=== PATIENT | female | born 1985 | race Caucasian/White ===

== ENCOUNTER 2017-03-07 11:34 | Inpatient (IN) | payer OTHER ==
[2017-03-07] MEDS ORDERED: Glycerin ADULT SUPP PR PRN (12:51)
[2017-03-07] MEDS ORDERED: Witch Hazel PAD* JAR TOPICAL PRN (12:51)
[2017-03-07] MEDS ORDERED: Acetaminophen TAB* 325 MG PO PRN (12:51)
[2017-03-07] MEDS ORDERED: Tetan/Diph/Pertus SYR(Tdap)* 0.5 ML SYR(BOOSTRIX) use SYR IM ONE (12:51)
[2017-03-07] MEDS ORDERED: Dibucaine 1% 28.35 GM TUBE PR PRN (12:51)
[2017-03-07] MEDS: Ibuprofen TAB* 600 MG PO PRN ×2 (14:33→20:44)
[2017-03-07] MEDS: Docusate CAP* 100 MG PO SCH ×2 (14:33→20:44)
[2017-03-07] MEDS ORDERED: Simethicone TAB* 80 MG TAB.CHEW PO SCH (17:30)
[2017-03-07 23:54] VITALS: BP 109/62
[2017-03-08] MEDS: Ibuprofen TAB* 600 MG PO PRN ×2 (05:08→12:13)
[2017-03-08 06:44] LABS: Hematocrit 31 % (35-47); Hemoglobin 10.7 g/dl (12.0-16.0); Mean Corpuscular HGB Conc 34 g/dl (31-36); Mean Corpuscular Hemoglobin 29 pg (27-31); Mean Corpuscular Volume 85 fL (80-97); Mean Platelet Volume 7 um3 (7.4-10.4); Red Blood Count 3.65 10^6/ul (4.0-5.4); Red Cell Distribution Width 13 % (10.5-15); White Blood Count 14.5 10^3/ul (3.5-10.8)
[2017-03-08] MEDS ORDERED: Ferrous Gluconate TAB* 324 MG TAB PO SCH (09:00)
[2017-03-08] MEDS ORDERED: Influenza VAC *QUAD* 2017-18* 0.5 ML SYRINGE IM ONE (09:00)
[2017-03-08] MEDS: Docusate CAP* 100 MG PO SCH (09:36)
== END 2017-03-08 12:58 | disposition home or self-care (01) | DRG 775 ==
LOC: MCHOBOUT 11:34 → MCHOB 11:41
PROVIDERS: ADMIT Midwife; ATTEND Midwife
PROC: 10E0XZZ Delivery of Products of Conception, External Approach (ICD-10-PCS; principal; 2017-03-07)
PROC: 4A1HXCZ Monitoring of Products of Conception, Cardiac Rate, External Approach (ICD-10-PCS; 2017-03-07)
PROC: 0HQ9XZZ Repair Perineum Skin, External Approach (ICD-10-PCS; 2017-03-07)
DX: O70.0 First degree perineal laceration during delivery (principal); Z37.0 Single live birth; Z3A.38 38 weeks gestation of pregnancy
CPT/HCPCS: 36415; 85025; A9270-GY

== ENCOUNTER 2019-03-25 05:40 | Inpatient (IN) | payer OTHER ==
[2019-03-25] MEDS ORDERED: OXYTOCIN* 10 UNITS/ML 1 ML VIAL IM ONE (07:30)
[2019-03-25] MEDS ORDERED: Buffered Lidocaine 1% SYRIN* 1 ML/SYRINGE INTRADERM ONE (07:30)
[2019-03-25] MEDS ORDERED: Dibucaine 1% 28.35 GM TUBE PR PRN (07:30)
[2019-03-25] MEDS ORDERED: Acetaminophen TAB* 325 MG PO PRN (07:30)
[2019-03-25] MEDS ORDERED: Lactated Ringers 1000 ML Bag* 1,000 ML IV ONE (07:30)
[2019-03-25] MEDS ORDERED: Witch Hazel PAD* JAR TOPICAL PRN (07:30)
[2019-03-25] MEDS ORDERED: Glycerin ADULT SUPP PR PRN (07:30)
[2019-03-25] MEDS ORDERED: OXYTOCIN* 10 UNITS/ML 1 ML VIAL ONE (07:38)
[2019-03-25] MEDS ORDERED: Lidocaine 1% INJ* 10 MG/ML 30 ML SDV ONE (07:43)
[2019-03-25] MEDS ORDERED: Lactated Ringers 1000 ML Bag* 1,000 ML IV SCH ×2 (08:00)
--- NOTE | 2019-03-25 08:08 | HP ---
General Information - Reason for Visit Pt arrived on unit in active labor at 9cm dilation - General Information Maternal Age: 33 Grav: 4 Para: 2 SAB: 1 IEA: 0 Estimated Due Date: 04/02/19 Gestational Age in Weeks/Days: 38 6/7 Maternal Blood Type and Rh: O Positive - Results this Serology/RPR Result: Non-Reactive Rubella Result: Immune HBsAg Result: Negative HIV Result: Negative GBS Culture Result: Negative Past Medical History Delivery History: Hx Uncomplicated Vaginal Delivery Pertinent Past Medical History: See Records - cold sores Pertinent Past Surgical History: None Pertinent Family History: Non-Contributory - Antepartal Records Antepartal Records: Reviewed, Complicated by: - marginal previa, resolved Review of Systems Constitutional: Uncomfortable CV Complaint: No Respiratory: Shortness of Breath: No Gastrointestinal: No Nausea/Vomiting, Normal Bowel Movement Genitourinary: Leaking Fluid, No Dysuria, No Bleeding Musculoskeletal: No Epigastric Pain, Contractions Neurological: No Headache, No Visual Changes Movement: Normal Exam Allergies/Adverse Reactions: Allergies No Known Allergies Allergy (Verified 03/25/19 06:05) Vital Signs 03/25/19 07:25 Temperature 98.2 F Pulse Rate 81 Respiratory 20 Rate Blood Pressure 109/78 (mmHg) O2 Sat by Pulse 100 Oximetry - Measurements Height: 5 ft 7 in Weight: 76.657 kg Weight in lbs: 169.218922 Body Mass Index (BMI): 26.4 Pre- Weight: 58.967 kg Weight Gained This : 39 lbs and 0 ozs - Exam Breast: Breast Exam Deferred CVA: No CVA Tenderness Extremities: No Edema Heart: Normal Rhythm/Heart Sounds HEENT: No Significant Findings Lungs: Clear Bilaterally Rectal: Rectal Exam Deferred Reflexes: DTR 2+ Thyroid: No Thyromegaly - Abdominal Exam Abdomen Exam: Non-Tender - Ultrasound/Biophysical Profile Ultrasound Status: Not Done Targeted Exam Findings See L&D Outpatient Visit Provider Note for Findings: N/A Estimated Weight: 7.5# Cervical Exam: 9cm Effacement: 100% Presenting Part: Vertex Membrane Status: SROM Amniotic Fluid Evaluation: Gross Rupture Bleeding/Discharge: Bloody Show EFM Findings - External Monitor Findings Baseline Heart Rate: 135 External Monitor Findings: Accelerations Present, No Pattern of Variable or Late Decelerations, Variability Moderate, Baseline Stable Contractions: Regular, Strong, 45-90 Seconds Contraction Frequency: 2-3 Assessment/Plan - Assessment 33 year old at 39 6/7 weeks gestation in active labor with no evidence of acidemia - Plan Plan: Admit - Anticipate Vaginal Delivery - Date/Time of Admission Date of Admission: 03/25/19 Time of Admission: 06:10
--- NOTE | 2019-03-25 08:16 | PROCNOTE ---
[facility] OB: Delivery Note - Delivery A Date of : 03/25/19 Time of : 06:59 [place] Sex: Male Weight at : 3.68 kg Score 1 Minute: 9 Score 5 Minutes: 9 Gestational Age in Weeks and Days at Delivery: 38 Weeks and 6 Days Delivery Method: Spontaneous Vaginal Labor: Spontaneous Did Patient attempt ?: N/A, No Previous Amniotic Fluid: Clear Estimated Blood Loss: 300 Anesthesia/Analgesia: None Delivered By: Connie Brown - Perineum Perineal Injury: 1st Degree Perineal Repair: By Delivering Practioner - Events Delivery Events of Note: None Apply - Additional Delivery Notes Additional Delivery Notes: Pt admitted to labor and delivery in active labor with ruptured membranes. She requested nitrous oxide for pain relief and was provided it, used sparingly. Pt soon progressed to full dilation and spontaneous pushing efforts. She pushed effectively with steady descent, and was soon coached through slow, controlled delivery of the head. Shoulders followed without difficulty. placed on maternal abdomen with vigorous cry and good tone, dried and stimulated. After cord pulsation ceased cord clamped x2 and cut by infant's father. Umbilical cord noted to have more than usual amount of [place] jelly. Placenta soon delivered, spontaneous and nadege. Fundas firm, bleeding minimal. Prophylactic Pitocin administered 10 mu IM with pt's consent. Inspection of the perineum showed small 1st degree laceration. Laceration repaired with 3-0 Vicryl suture with good hemostasis and tissue approximation. Infant at this time, mother and baby stable. Anticipate normal course.
[2019-03-25] MEDS: Ibuprofen TAB* 600 MG PO PRN ×3 (09:07→22:06)
[2019-03-25] MEDS: Docusate CAP* 100 MG PO SCH ×3 (09:07→22:06)
[2019-03-25 15:31] LABS: Urine Benzodiazepine Screen None Detected (None Detect); Urine Opiates Screen None Detected (None Detect)
[2019-03-25] MEDS: Calcium Carbonate CHEW TAB* 500 MG (TUMS) PO PRN ×2 (16:14→22:08)
[2019-03-26] MEDS: Ibuprofen TAB* 600 MG PO PRN ×2 (04:52→12:26)
[2019-03-26 06:36] LABS: ABS Basophils 0.1 10^3/ul (0-0.2); ABS Eosinophils 0.2 10^3/ul (0-0.6); ABS Monocytes 0.8 10^3/ul (0-0.8); ABS Neutrophils 10.5 10^3/ul (1.5-7.7); Eosinophil % 1.7 %; Hematocrit 26 % (35-47); Hemoglobin 8.4 g/dL (12.0-16.0); Lymphocyte % 14.5 %; Mean Corpuscular HGB Conc 33 g/dL (31-36); Mean Corpuscular Hemoglobin 27 pg (27-31); Mean Corpuscular Volume 81 fL (80-97); Platelet Count 237 10^3/uL (150-450); Red Blood Count 3.17 10^6 /uL (3.70-4.87); Red Cell Distribution Width 14 % (10-15); White Blood Count 13.5 10^3/uL (3.5-10.8)
[2019-03-26] MEDS: Docusate CAP* 100 MG PO SCH ×2 (08:12→14:34)
[2019-03-26 08:13] VITALS: BP 120/77
[2019-03-26] MEDS ORDERED: Ferrous Gluconate TAB* 324 MG TAB PO SCH (09:00)
== END 2019-03-26 16:30 | disposition home or self-care (01) | DRG 807 ==
LOC: MCHOBOUT 05:40 → MCHOB 06:10
PROVIDERS: ADMIT Midwife; ATTEND Midwife
PROC: 10E0XZZ Delivery of Products of Conception, External Approach (ICD-10-PCS; principal; 2019-03-25)
PROC: 0HQ9XZZ Repair Perineum Skin, External Approach (ICD-10-PCS; 2019-03-25)
DX: O60.20X0 Term delivery with preterm labor, unspecified trimester, not applicable or unspecified (principal); Z37.0 Single live birth; O70.0 First degree perineal laceration during delivery; O90.81 Anemia of the puerperium; D64.9 Anemia, unspecified; Z3A.38 38 weeks gestation of pregnancy
CPT/HCPCS: 36415; 80307; 85025; A9270-GY; J2590